=== PATIENT | male | born 1990 | race Caucasian/White ===

== ENCOUNTER 2016-12-01 16:51 | Observation (INO) | payer OTHER ==
[2016-12-01] MEDS ORDERED: Ondansetron INJ* 2 MG/ML VIAL IV ONE (17:02)
[2016-12-01] MEDS ORDERED: Morphine INJ* 4 MG/ML 1 ML SYRINGE IV ONE ×2 (17:02→19:01)
[2016-12-01] MEDS: NS 0.9% 1000 ML* 2,000 ML IV ONE (17:21)
--- NOTE | 2016-12-01 17:25 | RAD ---
INDICATION: Epigastric pain and shortness of breath. COMPARISON: There are no prior studies available for comparison. TECHNIQUE: A portable view of the chest was obtained. The left costophrenic angle is cut off on the film. FINDINGS: Cardiac and mediastinal contours appear to be within normal limits. The lungs are clear. No pleural effusion is seen. IMPRESSION: NO EVIDENCE FOR ACUTE DISEASE.
[2016-12-01 17:32] LABS: Hematocrit 42 % (42-52); Hemoglobin 14.4 g/dl (14.0-18.0); Mean Corpuscular HGB Conc 34 g/dl (31-36); Mean Corpuscular Hemoglobin 28 pg (27-31); Mean Corpuscular Volume 82 fL (80-94); Mean Platelet Volume 9 um3 (7.4-10.4); Red Blood Count 5.14 10^6/ul (4.0-5.4); Red Cell Distribution Width 14 % (10.5-15); White Blood Count 12.6 10^3/ul (3.5-10.8)
[2016-12-01 17:47] LABS: BUN/Creatinine Ratio 22.9 (8-20); C Reactive Protein 1.99 mg/L (< 5.00); Calcium 9.2 mg/dL (8.6-10.3); EGFR African American 145.2 (>60); EGFR Non-African American 112.9 (>60); Globulin 2.9 g/dL (2-4); Magnesium 1.7 mg/dL (1.9-2.7); Potassium 3.9 mmol/L (3.5-5.0); Total Bilirubin 0.5 mg/dL (0.2-1.0); Total Protein 6.9 g/dL (6.4-8.9)
[2016-12-01 17:55] LABS: Troponin I 0.06 ng/mL (<0.04)
[2016-12-01] MEDS ORDERED: Aspirin Low Dose CHEW TAB* 81 MG PO ONE (17:55)
[2016-12-01 18:09] LABS: TSH (Thyroid Stimulating Horm) 1.45 mcIU/mL (0.34-5.60)
[2016-12-01] MEDS ORDERED: Iohexol 300* (CONTRAST) 10 ML SDV IV ONE (18:19)
[2016-12-01] MEDS ORDERED: Magnesium Sulfate 2 GM IV* 2 GM/50 ML BAG IVPB ONE (18:40)
--- NOTE | 2016-12-01 19:01 | ED ---
Shyam Zarco Janilya, scribed for Umer Milian MD on 12/01/16 at 1706 . HPI Chest Pain - HPI Summary HPI Summary: A 26 y/o male came in to [facility] presenting w/ a sudden onset of constant mid- sternal CP starting a few hours ago. Severity rated 6/10 at this time. En route , it was rated at 9/10. Pt states he was sitting in a chair when suddenly he had pain in chest. It started as mild discomfort, but within a minute, it increased to severe pain. Pain is described as sharp and tight pain. He states he was not able to breathe because breathing worsened the CP. The pain radiates to abd and back rib cage, according to pt. - History of Current Complaint Time Seen by Provider: 12/01/16 16:56 Hx Obtained From: Patient Onset/Duration: Started Hours Ago, Atraumatic, Still Present Timing: Constant Initial Severity: Moderate Current Severity: Moderate Pain Intensity: 6 Pain Scale Used: 0-10 Numeric Chest Pain Location: Mid Sternal Chest Pain Radiates: Yes Chest Pain Radiates To:: Back, Other - abd Character: Sharp/Stabbing, Tightness Aggravating Factor(s): Nothing Alleviating Factor(s): Nothing Associated Signs and Symptoms: Positive: Chest Pain, Shortness of Breath, Back Pain, Abdominal Pain Related History: Obesity - Additional Pertinent History Primary Care Physician: [id number] - Allergy/Home Medications Allergies/Adverse Reactions: Allergies Allergy/AdvReac Type Severity Reaction Status Date / Time No Known Allergies Allergy Verified 02/11/16 14:23 PMH/Surg Hx/FS Hx/Imm Hx Previously Healthy: Yes Endocrine/Hematology History: Reports: Hx Diabetes - pre diabetic Denies: Hx Systemic Lupus Erythematosus Cardiovascular History: Reports: Hx Hypertension Denies: Hx Congestive Heart Failure, Hx Pacemaker/ICD Respiratory History: Reports: Hx Sleep Apnea - beginning History: Denies: Hx Dialysis, Hx Renal Disease Musculoskeletal History: Reports: Hx Arthritis, Other Musculoskeletal History - Morbid obesity Denies: Hx Rheumatoid Arthritis Sensory History: Denies: Hx Hearing Aid Psychiatric History: Reports: Hx Anxiety Denies: Hx Panic Disorder - Cancer History Hx Chemotherapy: No - Surgical History Hx Anesthesia Reactions: No - Family History Known Family History: Positive: Diabetes Negative: Cardiac Disease Family History: R & n/C - Social History Alcohol Use: None Hx Substance Use: No Substance Use Type: Reports: None Substance Use Comment - Amount & Last Used: vape cigarettes Hx Tobacco Use: No Smoking Status (MU): Former Smoker Review of Systems Positive: Chest Pain Positive: Shortness Of Breath Positive: Abdominal Pain Positive: Arthralgia - back rib cage pain, Myalgia - back pain All Other Systems Reviewed And Are Negative: Yes Physical Exam Triage Information Reviewed: Yes Vital Signs On Initial Exam: Vital Signs (72 hours) 12/01/16 12/01/16 16:54 17:00 Temperature 97.3 F 97.8 F Pulse Rate 73 67 Respiratory 12 16 Rate Blood Pressure 155/83 155/83 (mmHg) O2 Sat by Pulse 100 100 Oximetry Vital Signs Reviewed: Yes Appearance: Positive: Well-Appearing, Pain Distress - moderate Skin: Positive: Warm, Skin Color Reflects Adequate Perfusion, Dry, Other - Sweaty and pale Head/Face: Positive: Normal Head/Face Inspection Eyes: Positive: EOMI, MICHAEL ENT: Positive: Normal ENT inspection Neck: Positive: Supple, Nontender Respiratory/Lung Sounds: Positive: Clear to Auscultation, Breath Sounds Present Cardiovascular: Positive: RRR Abdomen Description: Positive: Soft, Other: - Tenderness in the epigastrium. Negative: Nontender Bowel Sounds: Positive: Present, Hypoactive Musculoskeletal: Positive: Normal, Strength/ROM Intact Neurological: Positive: Normal, Sensory/Motor Intact, Alert, Oriented to Person Place, Time. Negative: Focal Deficit @ Psychiatric: Positive: Affect/Mood Appropriate Diagnostics - Vital Signs Vital Signs Temp Pulse Resp BP Pulse Ox 12/01/16 18:30 75 18 143/69 98 12/01/16 18:00 85 17 126/87 96 12/01/16 17:48 78 16 142/95 96 12/01/16 17:34 67 14 97 12/01/16 17:20 18 12/01/16 17:00 97.8 F 67 16 155/83 100 12/01/16 16:54 97.3 F 73 12 155/83 100 - Laboratory Lab Results: Lab Results 12/01/16 12/01/16 12/01/16 Range/Units 17:20 17:20 17:20 WBC 12.6 H (3.5-10.8) 10^3/ul RBC 5.14 (4.0-5.4) 10^6/ul Hgb 14.4 (14.0-18.0) g/dl Hct 42 (42-52) % MCV 82 (80-94) fL MCH 28 (27-31) pg MCHC 34 (31-36) g/dl RDW 14 (10.5-15) % Plt Count 235 (150-450) 10^3/ul MPV 9 (7.4-10.4) um3 Neut % (Auto) 71.5 (38-83) % Lymph % (Auto) 18.6 L (25-47) % [place] % (Auto) 6.7 (1-9) % Eos % (Auto) 1.9 (0-6) % Baso % (Auto) 1.3 (0-2) % Absolute Neuts (auto) 9.0 H (1.5-7.7) 10^3/ul Absolute Lymphs (auto) 2.3 (1.0-4.8) 10^3/ul Absolute Monos (auto) 0.8 (0-0.8) 10^3/ul Absolute Eos (auto) 0.2 (0-0.6) 10^3/ul Absolute Basos (auto) 0.2 (0-0.2) 10^3/ul Absolute Nucleated RBC 0.01 10^3/ul Nucleated RBC % 0 INR (Anticoag Therapy) 0.89 (0.89-1.11) APTT 30.4 (26.0-36.3) seconds D-Dimer, Quantitative < 200 (Less Than 230) ng/mL Sodium 135 (133-145) mmol/L Potassium 3.9 (3.5-5.0) mmol/L Chloride 107 (101-111) mmol/L Carbon Dioxide 21 L (22-32) mmol/L Anion Gap 7 (2-11) mmol/L BUN 19 (6-24) mg/dL Creatinine 0.83 (0.67-1.17) mg/dL Est GFR ( Amer) 145.2 (>60) Est GFR (Non-Af Amer) 112.9 (>60) BUN/Creatinine Ratio 22.9 H (8-20) Glucose 115 H (70-100) mg/dL Lactic Acid (0.5-2.0) mmol/L Calcium 9.2 (8.6-10.3) mg/dL Magnesium 1.7 L (1.9-2.7) mg/dL Total Bilirubin 0.50 (0.2-1.0) mg/dL AST 40 H (13-39) U/L ALT 33 (7-52) U/L Alkaline Phosphatase 64 (34-104) U/L Total Creatine Kinase 102 (10-223) U/L CK-MB (CK-2) 1.9 (0.6-6.3) ng/mL Troponin I 0.06 H* (<0.04) ng/mL C-Reactive Protein 1.99 (< 5.00) mg/L Total Protein 6.9 (6.4-8.9) g/dL Albumin 4.0 (3.2-5.2) g/dL Globulin 2.9 (2-4) g/dL Albumin/Globulin Ratio 1.4 (1-3) Lipase 23 (11.0-82.0) U/L TSH 1.45 (0.34-5.60) mcIU/mL 12/01/16 Range/Units 17:20 WBC (3.5-10.8) 10^3/ul RBC (4.0-5.4) 10^6/ul Hgb (14.0-18.0) g/dl Hct (42-52) % MCV (80-94) fL MCH (27-31) pg MCHC (31-36) g/dl RDW (10.5-15) % Plt Count (150-450) 10^3/ul MPV (7.4-10.4) um3 Neut % (Auto) (38-83) % Lymph % (Auto) (25-47) % [place] % (Auto) (1-9) % Eos % (Auto) (0-6) % Baso % (Auto) (0-2) % Absolute Neuts (auto) (1.5-7.7) 10^3/ul Absolute Lymphs (auto) (1.0-4.8) 10^3/ul Absolute Monos (auto) (0-0.8) 10^3/ul Absolute Eos (auto) (0-0.6) 10^3/ul Absolute Basos (auto) (0-0.2) 10^3/ul Absolute Nucleated RBC 10^3/ul Nucleated RBC % INR (Anticoag Therapy) (0.89-1.11) APTT (26.0-36.3) seconds D-Dimer, Quantitative (Less Than 230) ng/mL Sodium (133-145) mmol/L Potassium (3.5-5.0) mmol/L Chloride (101-111) mmol/L Carbon Dioxide (22-32) mmol/L Anion Gap (2-11) mmol/L BUN (6-24) mg/dL Creatinine (0.67-1.17) mg/dL Est GFR ( Amer) (>60) Est GFR (Non-Af Amer) (>60) BUN/Creatinine Ratio (8-20) Glucose (70-100) mg/dL Lactic Acid 0.8 (0.5-2.0) mmol/L Calcium (8.6-10.3) mg/dL Magnesium (1.9-2.7) mg/dL Total Bilirubin (0.2-1.0) mg/dL AST (13-39) U/L ALT (7-52) U/L Alkaline Phosphatase (34-104) U/L Total Creatine Kinase (10-223) U/L CK-MB (CK-2) (0.6-6.3) ng/mL Troponin I (<0.04) ng/mL C-Reactive Protein (< 5.00) mg/L Total Protein (6.4-8.9) g/dL Albumin (3.2-5.2) g/dL Globulin (2-4) g/dL Albumin/Globulin Ratio (1-3) Lipase (11.0-82.0) U/L TSH (0.34-5.60) mcIU/mL Result Diagrams: 12/01/16 17:20 12/01/16 17:20 Lab Statement: Any lab studies that have been ordered have been reviewed, and results considered in the medical decision making process. - Radiology CXR Xray Interpretation: No Acute Changes - no evidence for acute disease Radiology Interpretation Completed By: Radiologist - EKG 9833 Cardiac Rate: NL - 66 bpm EKG Rhythm: Sinus Rhythm ST Segment: Normal Ectopy: None Chest Pain Course/Dx - Course Course Of Treatment: A 26 y/o male came in to [facility] presenting w/ a sudden onset of constant mid-sternal CP starting a few hours ago. Severity rated 6/10 at this time. En route, it was rated at 9/10. Pt states he was sitting in a chair when suddenly he had pain in chest. It started as mild discomfort, but within a minute, it increased to severe pain. Pain is described as sharp and tight pain. He states he was not able to breathe because breathing worsened the CP. The pain radiates to abd and back rib cage, according to pt. EKG is NSR w/ 66 bpm. CXR shows no evidence for acute disease. Assessment/Plan: NO CRITICAL CARE TIME. PATIENT REPORTS THIS IS THE SAME PAIN HE HAD WITH GALLSTONE PASSAGE. PAIN RELIEVED AFTER MORPHINE. EKG WITHOUT ST CHANGES. TROPONIN 0.06; REPEAT EKG UNCHANGED. AT SHIFT CHANGE REPEAT TROPONIN AND CT PENDING. STABLE AT SHIFT CHANGE. - Diagnoses Provider Diagnoses: Epigastric pain, Abdominal pain, Chest pain, Troponin level elevated Discharge - Discharge Plan Condition: Stable Disposition: OTHER Discharge Disposition Comment: V Referrals: Wisam Khan III, MINIATURE SET DESIGNER [Primary Care Provider] - The documentation as recorded by the Shyam gonzáles Janilya accurately reflects the service I personally performed and the decisions made by me, Umer Milian MD.
--- NOTE | 2016-12-01 20:35 | RAD ---
INDICATION: Shortness of breath, epigastric and chest pain. COMPARISON: Comparison is made with a prior CT of the abdomen and pelvis from February 11, 2016. TECHNIQUE: A CT angiogram of the chest and a CT of the abdomen and pelvis was performed with intravenous contrast following intravenous injection of 100 ml of Omnipaque 350 nonionic contrast. Contiguous axial sections were obtained from the lung apices through the symphysis pubis. Images were reconstructed in the coronal and sagittal planes. FINDINGS: CT ANGIOGRAM OF THE CHEST: There is relatively homogeneous opacification of the pulmonary arteries. No intraluminal filling defect or pulmonary embolism is seen. The exam is slightly limited due to underinflation of the lungs and the patient's body habitus. The heart is within normal limits in size. No pericardial effusion is present. The thoracic aorta is normal in caliber and demonstrates homogeneous contrast opacification without evidence for dissection. No significant enlarged mediastinal or hilar lymph nodes are seen. The lungs are clear. No pleural effusion is seen. CT OF THE ABDOMEN AND PELVIS: The liver is moderately enlarged and the spleen is mildly enlarged without change from the prior exam. No significant focal hepatic abnormality is seen. The patient is status post cholecystectomy. The pancreas appears to be within normal limits. The kidneys and adrenal glands are normal in size. No hydronephrosis is seen. No significant focal renal abnormality is seen. The abdominal aorta is normal in caliber. No significant enlarged retroperitoneal lymph nodes are seen. The stomach, small and large bowel appear nondistended. The appendix appears to be within normal limits. There are diverticuli scattered throughout the colon. There is no evidence for diverticulitis or colitis. There is a small periumbilical hernia containing fat. No free intraperitoneal air or fluid is seen. No significant focal osseous abnormality is seen. IMPRESSION: 1. SLIGHTLY LIMITED EXAM, NO EVIDENCE FOR PULMONARY EMBOLISM. 2. HEPATOSPLENOMEGALY, UNCHANGED. 3. STATUS POST CHOLECYSTECTOMY.
[2016-12-01] MEDS ORDERED: Ketorolac INJ* 15 MG/ML 1 ML VIAL IV PUSH PRN (23:56)
[2016-12-02] MEDS ORDERED: Ketorolac INJ* 15 MG/ML 1 ML VIAL ONE
[2016-12-02 02:40] LABS: Urine Bilirubin Negative (Negative); Urine Glucose Negative (Negative); Urine Nitrite Negative (Negative)
--- NOTE | 2016-12-02 09:38 | RAD ---
INDICATION: Abdominal pain. Cholecystectomy. COMPARISON: CT chest/abdomen/pelvis previous day TECHNIQUE: Longitudinal and transverse scans of the abdomen were obtained. Doppler interrogation of the hepatic and portal venous system was performed. FINDINGS: Liver: The liver is at the upper limits of normal in size. There is mild increased echogenicity suggestive of hepatic steatosis. There are no focal masses. The liver measures 17.1 cm in cephalocaudal dimension. Vessels: There is normal hepatic and portal venous flow. Bile ducts: There is no evidence of intrahepatic or extrahepatic ductal dilatation. The common duct measures 0.6 cm. Gallbladder: Cholecystectomy. Pancreas: The pancreas is not well evaluated due to interfering bowel gas Spleen:The spleen is normal in size and echogenicity. The spleen measures 14.2 x 5.9 x 7.0 cm. Kidneys: The kidneys are normal in size and echogenicity. There are no masses or calculi. There is no evidence of hydronephrosis. The right kidney measures 13.3 x 4.5 x 5.9 cm and the left kidney measures 13.4 x 7.0 x 4.6 cm. IVC and aorta: Evaluation is limited due to bowel gas. Fluid: There is no ascites. Other: None. IMPRESSION: 1. Top normal liver size with hepatic steatosis. 2. Moderate splenomegaly. 3. Cholecystectomy.
--- NOTE | 2016-12-02 09:57 | HP ---
HISTORY AND PHYSICAL: DATE OF ADMISSION: 12/01/16 CHIEF COMPLAINT: Chest/abdominal pain. HISTORY OF PRESENT ILLNESS: The patient is a 26-year-old gentleman who presents to the [facility] with a chief complaint of chest and abdominal pain. He says this started at about 5 p.m. last night. He started having significant pain in the epigastric area and it felt like he was on fire. It started going to his back and feeling much worse. It came on suddenly. He felt exactly the same way as when his gallbladder attack was last year. It is worse when he takes a deep breath. He does have associated nausea but no vomiting. He had no recent upper respiratory infection. He says he has had trouble with breathing, but it is because of the pain. In the ER, patient was evaluated and was concerned because he had a troponin of 0.06 and 0.05. PAST MEDICAL HISTORY: Significant for psoriasis, umbilical hernia, and cholecystectomy last year and morbid obesity. ALLERGIES: He has no known drug allergies. MEDICATIONS: He currently takes no medications. FAMILY HISTORY: Mother is alive at 47 has endometriosis, uterine cancer, and hysterectomy. Father is alive at 49, has cardiomyopathy and had an enlarged heart. SOCIAL HISTORY: He quit tobacco 3 years ago, occasional alcohol and occasional drug use. 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 He is not . He has no children. REVIEW OF SYSTEMS: A 14-point review of systems was completed with the patient. All pertinent positives and negatives are in the history of present illness, otherwise is negative. PHYSICAL EXAMINATION GENERAL: A pleasant gentleman, overweight lying in bed, in no acute distress. VITAL SIGNS: Blood pressure is 155/83, pulse ox 100%, respiratory rate of 18 breaths per minute, heart rate 67 beats per minute, temperature of 97.8 degrees. HEENT: Normocephalic, atraumatic. Pupils equal, round, and reactive to light. Moist mucous membranes. NECK: Supple. No JVD, bruits, palpable thyroid or lymphadenopathy. CHEST: Clear to auscultation and percussion bilaterally. CARDIOVASCULAR: S1, S2 appreciated. Regular rate and rhythm. ABDOMEN: Morbidly obese. Positive bowel sounds in all 4 quadrants. Soft, nontender, nondistended. EXTREMITIES: No cyanosis, clubbing, or edema. 2+ peripheral pulses bilaterally. NEUROLOGIC: Alert and oriented x 3. Moves all extremities. SKIN: No rashes or abnormalities. LABORATORY DATA: White count 4.6, hemoglobin 14.4, hematocrit 42, platelets 235. Sodium 135, potassium is 3.9, chloride 107, CO2 21, BUN 19, creatinine 0.83 , glucose is 115, magnesium is 1.7. AST is 40, ALT is 33. Troponin 0.06, second troponin is 0.05. D-dimer less than 200. Urinalysis is positive for urobilinogen. Chest x-ray was interpreted by radiology as no evidence for acute disease. EKG shows normal sinus rhythm at 67 beats per minute, normal axis, no acute ST- T wave changes. CTA of the chest, abdomen and pelvis shows slightly limited exam, no evidence of pulmonary embolism, hepatomegaly or change, status post cholecystectomy. ASSESSMENT AND PLAN: 1. Chest/abdominal pain. Patient states it is exactly like his gallbladder attack last year, but he has his gallbladder out. It is a very unlikely possibly, but he could have sludge left there. We will get an ultrasound of his gallbladder, but I think it would be unrevealing. His LFTs are within normal limits. I think his troponins are unlikely of significance, but he is very concerned. We will get another troponin in the morning, and then get an echocardiogram. I think most likely pericarditis. I have given him 50 mg of Toradol to see if this helps as well. 2. FEN: Heart healthy diet. 3. DVT prophylaxis: None. He is young and ambulatory. 4. The patient is a full code. TIME SPENT: Over 80 minutes was spent on this H and P, more than 45 minutes was spent in direct face to face contact with the patient, evaluation, physical examination, counseling, and coordination of care. CC: Dr. Wisam Khan, primary care provider* [id number]/[facility] #: [id number] AMANDA
[2016-12-02] MEDS ORDERED: Perflutren Lipid Microsphere* 3 ML VIAL ONE (12:41)
--- NOTE | 2016-12-02 13:56 | ECHO ---
Patient: MEG PEREIRA [facility] Rec#: [id number] : 1990 Date: 12/02/2016 Age: 26y Height: 180.3 cm / 71.0 in Weight: 145.2 kg / 320.0 lbs Sex: M BSA: 2.6 Room#: 433 Admit Date#: 12/01/2016 Type: Inpatient Referring: Joseph Bennett MD Reading: Dane Florentino MD Blasting Machine Operator: Diane Jackson RN RDCS CC: Wisam Khan, DO Transthoracic Echocardiogram Indication: Chest pain BP: 132/57 HR: 55 Rhythm: Bradycardia Findings History: HTN, pre-diabetes, sleep apnea, anxiety, morbid obesity Technical Comments: The study is technically limited due to patient body habitus. Completed at 1330. Left Ventricle: The left ventricular chamber size is normal. Mild to moderate concentric left ventricular hypertrophy is observed. Left ventricular systolic function is at the lower limits of normal. The estimated ejection fraction is 50-55%. Normal left ventricular diastolic filling is observed. Left Atrium: The left atrium is mildly dilated. Right Ventricle: The right ventricular cavity size is normal. The right ventricular global systolic function is low normal. Right Atrium: The right atrium is mildly dilated. Aortic Valve: The aortic valve is trileaflet. The aortic valve leaflets are mildly thickened. There is no evidence of aortic regurgitation. There is no evidence of aortic stenosis. Mitral Valve: The mitral valve leaflets are mildly thickened. There is a trace of mitral regurgitation. There is no evidence of mitral stenosis. Tricuspid Valve: The tricuspid valve leaflets are normal. There is trace to mild tricuspid regurgitation. Unable to estimate the right ventricular systolic pressure. Pulmonic Valve: The pulmonic valve appears normal. There is no evidence of pulmonic regurgitation. There is no pulmonic stenosis. Pericardium: There is no significant pericardial effusion. A pericardial fat pad is visualized. Aorta: There is no dilatation of the ascending aorta. There is no dilatation of the aortic arch. There is no dilation of the aortic root. Pulmonary Artery: The main pulmonary artery appears normal. Venous: The inferior vena cava appears normal in size. There is less than 50% respiratory change in the inferior vena cava dimension. Contrast: Definity was used to optimize study. 2 ml of diluted Definity was administered IV to improve endocardial border definition. Conclusions Mild to moderate concentric left ventricular hypertrophy is observed. Left ventricular systolic function is at the lower limits of normal. The estimated ejection fraction is 50-55%. Normal left ventricular diastolic filling is observed. The right ventricular global systolic function is low normal. The aortic valve leaflets are mildly thickened. There is no evidence of aortic regurgitation. There is a trace of mitral regurgitation. There is trace to mild tricuspid regurgitation. Unable to estimate the right ventricular systolic pressure. There is no significant pericardial effusion. Measurements Name Value Normal Range RVDdMajor (2D) 4 cm (2.2 - 4.4) RAd ISD 4CH 5 cm (3.4 - 4.9) RA (A4C)W 4.6 cm (2.9 - 4.6) IVSd (2D) 1.3 cm (0.6 - 1) LVPWd (2D) 1.1 cm (0.6 - 1) LVIDd (2D) 4.8 cm (3.6 - 5.4) LVIDs (2D) 3.5 cm - LV FS (2D) 27 % (25 - 45) Aortic Annulus 2.1 cm (1.4 - 2.6) Ao root diameter (2D) 2.9 cm (2.1 - 3.5) Ascending Ao 2.7 cm (2.1 - 3.4) Aortic arch 2.5 cm (1.8 - 3.4) LA dimension (AP) 2D 3.6 cm (2.3 - 3.8) LAd ISD 4CH 5.7 cm (2.9 - 5.3) LA ISD 4CH W 4.1 cm (2.5 - 4.5) Name Value Normal Range LA ESV SP 4CH (A/L) 45 ml - LA ESV SP 2CH (A/L) 59 ml - LA ESV BP (A/L) 53 ml - LA ESV BP (A/L) index 20.4 ml/m2 - LA ESV SP 4CH (MOD) 43 ml - LA ESV SP 2CH (MOD) 58 ml - Name Value Normal Range MV E-wave Vmax 1.2 m/sec - MV deceleration time 190 msec - MV A-wave Vmax 0.73 m/sec - MV E:A ratio 1.7 ratio - LV septal e' Vmax 0.13 m/sec - LV lateral e' Vmax 0.13 m/sec - LV E:e' septal ratio 9.2 ratio - LV E:e' lateral ratio 9.2 ratio - Name Value Normal Range AV Vmax 1.4 m/sec - AV VTI 33 cm - AV peak gradient 8 mmHg - AV mean gradient 4 mmHg - LVOT Vmax 1.1 m/sec - LVOT VTI 26 cm - LVOT peak gradient 5 mmHg - LVOT mean gradient 3 mmHg - KATELIN Vmax 1.2 m/sec - Name Value Normal Range IVC diameter 2.1 cm - Name Value Normal Range PV Vmax 0.75 m/sec -
--- NOTE | 2016-12-02 14:01 | PN ---
"Subjective Date of Service: 12/02/16 Objective Active Medications: Ketorolac Tromethamine (Toradol Inj*) 15 mg IV PUSH Q6H PRN PRN Reason: PAIN Last Admin: 12/02/16 00:05 Dose: 15 mg Vital Signs 12/02/16 12/02/16 12/02/16 01:15 03:37 08:55 Temperature 97.7 F 96.8 F 97.8 F Pulse Rate 67 65 53 Respiratory 18 20 16 Rate Blood Pressure 135/78 132/57 141/75 (mmHg) O2 Sat by Pulse 99 98 98 Oximetry Result Diagrams: 12/01/16 17:20 12/01/16 17:20 Additional Lab and Data: Lab Results 12/01/16 12/01/16 12/01/16 Range/Units 17:20 17:20 17:20 WBC 12.6 H (3.5-10.8) 10^3/ul RBC 5.14 (4.0-5.4) 10^6/ul Hgb 14.4 (14.0-18.0) g/dl Hct 42 (42-52) % MCV 82 (80-94) fL MCH 28 (27-31) pg MCHC 34 (31-36) g/dl RDW 14 (10.5-15) % Plt Count 235 (150-450) 10^3/ul MPV 9 (7.4-10.4) um3 Neut % (Auto) 71.5 (38-83) % Lymph % (Auto) 18.6 L (25-47) % Lee % (Auto) 6.7 (1-9) % Eos % (Auto) 1.9 (0-6) % Baso % (Auto) 1.3 (0-2) % Absolute Neuts (auto) 9.0 H (1.5-7.7) 10^3/ul Absolute Lymphs (auto) 2.3 (1.0-4.8) 10^3/ul Absolute Monos (auto) 0.8 (0-0.8) 10^3/ul Absolute Eos (auto) 0.2 (0-0.6) 10^3/ul Absolute Basos (auto) 0.2 (0-0.2) 10^3/ul Absolute Nucleated RBC 0.01 10^3/ul Nucleated RBC % 0 INR (Anticoag Therapy) 0.89 (0.89-1.11) APTT 30.4 (26.0-36.3) seconds D-Dimer, Quantitative < 200 (Less Than 230) ng/mL Sodium 135 (133-145) mmol/L Potassium 3.9 (3.5-5.0) mmol/L Chloride 107 (101-111) mmol/L Carbon Dioxide 21 L (22-32) mmol/L Anion Gap 7 (2-11) mmol/L BUN 19 (6-24) mg/dL Creatinine 0.83 (0.67-1.17) mg/dL Est GFR ( Amer) 145.2 (>60) Est GFR (Non-Af Amer) 112.9 (>60) BUN/Creatinine Ratio 22.9 H (8-20) Glucose 115 H (70-100) mg/dL Lactic Acid (0.5-2.0) mmol/L Calcium 9.2 (8.6-10.3) mg/dL Magnesium 1.7 L (1.9-2.7) mg/dL Total Bilirubin 0.50 (0.2-1.0) mg/dL AST 40 H (13-39) U/L ALT 33 (7-52) U/L Alkaline Phosphatase 64 (34-104) U/L Total Creatine Kinase 102 (10-223) U/L CK-MB (CK-2) 1.9 (0.6-6.3) ng/mL Troponin I 0.06 H* (<0.04) ng/mL C-Reactive Protein 1.99 (< 5.00) mg/L Total Protein 6.9 (6.4-8.9) g/dL Albumin 4.0 (3.2-5.2) g/dL Globulin 2.9 (2-4) g/dL Albumin/Globulin Ratio 1.4 (1-3) Lipase 23 (11.0-82.0) U/L TSH 1.45 (0.34-5.60) mcIU/mL // Range/Units 17:20 WBC (3.5-10.8) 10^3/ul RBC (4.0-5.4) 10^6/ul Hgb (14.0-18.0) g/dl Hct (42-52) % MCV (80-94) fL MCH (27-31) pg MCHC (31-36) g/dl RDW (10.5-15) % Plt Count (150-450) 10^3/ul MPV (7.4-10.4) um3 Neut % (Auto) (38-83) % Lymph % (Auto) (25-47) % Lee % (Auto) (1-9) % Eos % (Auto) (0-6) % Baso % (Auto) (0-2) % Absolute Neuts (auto) (1.5-7.7) 10^3/ul Absolute Lymphs (auto) (1.0-4.8) 10^3/ul Absolute Monos (auto) (0-0.8) 10^3/ul Absolute Eos (auto) (0-0.6) 10^3/ul Absolute Basos (auto) (0-0.2) 10^3/ul Absolute Nucleated RBC 10^3/ul Nucleated RBC % INR (Anticoag Therapy) (0.89-1.11) APTT (26.0-36.3) seconds D-Dimer, Quantitative (Less Than 230) ng/mL Sodium (133-145) mmol/L Potassium (3.5-5.0) mmol/L Chloride (101-111) mmol/L Carbon Dioxide (22-32) mmol/L Anion Gap (2-11) mmol/L BUN (6-24) mg/dL Creatinine (0.67-1.17) mg/dL Est GFR ( Amer) (>60) Est GFR (Non-Af Amer) (>60) BUN/Creatinine Ratio (8-20) Glucose (70-100) mg/dL Lactic Acid 0.8 (0.5-2.0) mmol/L Calcium (8.6-10.3) mg/dL Magnesium (1.9-2.7) mg/dL Total Bilirubin (0.2-1.0) mg/dL AST (13-39) U/L ALT (7-52) U/L Alkaline Phosphatase (34-104) U/L Total Creatine Kinase (10-223) U/L CK-MB (CK-2) (0.6-6.3) ng/mL Troponin I (<0.04) ng/mL C-Reactive Protein (< 5.00) mg/L Total Protein (6.4-8.9) g/dL Albumin (3.2-5.2) g/dL Globulin (2-4) g/dL Albumin/Globulin Ratio (1-3) Lipase (11.0-82.0) U/L TSH (0.34-5.60) mcIU/mL Assess/Plan/Problems-Billing Assessment: - Patient Problems (1) Abdominal pain Status: Acute Code(s): R10.9 - UNSPECIFIED ABDOMINAL PAIN SNOMED Code(s): 87146535 Comment: [facility] neg. Suspect acid peptic disease. Rx omeprazole 20 mg bid PRN ondansetron and prn oxycodone, [facility] with his provider in [facility]. (2) Morbid obesity Status: Acute Code(s): E66.01 - MORBID (SEVERE) OBESITY DUE TO EXCESS CALORIES SNOMED Code(s): 726882561 Comment: BMI 47.4. Status and Disposition: Search Terms: aide barclay, 1990 Search Date: 12/02/2016 04:45:43 PM This report was requested by: Johnny Louis | Reference #: [id number] Others' Prescriptions Patient Name: Aide Barclay Date: 1990 Address: [address] [place] [address] Sex: Male Rx Written Rx Dispensed Drug Quantity Days Supply Prescriber Name 02/15/2016 02/15/2016 hydrocodone-acetaminophen 5-325 tablet 30 3 Brandi Martinez Discharge now. [facility]."
[2016-12-02] MEDS ORDERED: LORazepam INJ* 2 MG/ML 1 ML VIAL IV PUSH ONE ×2 (15:00→18:00)
[2016-12-02 15:18] VITALS: BP 154/97
--- NOTE | 2016-12-02 16:06 | RAD ---
Indication: Abdominal pain, right upper quadrant pain Image sequences: Axial T2, coronal T2, 3-D MRCP images of the biliary system was obtained. The left and right hepatic ducts are normal. Common hepatic duct and common bile duct or intact without evidence of abnormal dilatation. No filling defects are noted. The patient is status post cholecystectomy. IMPRESSION: No filling defects are noted in the common hepatic or common bile duct with no intrahepatic ductal dilatation present.
--- NOTE | 2016-12-02 17:41 | DCNOTE ---
"Subjective Date of Service: 12/02/16 Interval History: Patient c/o intermittent nausea, epigastric pain. No emesis or diarrhea. Some pain in back also. Objective Active Medications: Ketorolac Tromethamine (Toradol Inj*) 15 mg IV PUSH Q6H PRN PRN Reason: PAIN Last Admin: 12/02/16 00:05 Dose: 15 mg Vital Signs 12/02/16 12/02/16 12/02/16 01:15 03:37 08:55 Temperature 97.7 F 96.8 F 97.8 F Pulse Rate 67 65 53 Respiratory 18 20 16 Rate Blood Pressure 135/78 132/57 141/75 (mmHg) O2 Sat by Pulse 99 98 98 Oximetry 12/02/16 12/02/16 12/02/16 11:19 15:08 15:12 Temperature 98.4 F 98.3 F Pulse Rate 47 79 Respiratory 16 18 18 Rate Blood Pressure 126/82 154/97 (mmHg) O2 Sat by Pulse 97 97 Oximetry 12/02/16 16:08 Temperature Pulse Rate Respiratory 17 Rate Blood Pressure (mmHg) O2 Sat by Pulse Oximetry Oxygen Devices in Use Now: None Appearance: Alert, partly up in bed. Anxious. Eyes: No Scleral Icterus Respiratory: Symmetrical Chest Expansion and Respiratory Effort, Clear to Auscultation, Clear to Percussion Cardiovascular: NL Sounds; No Murmurs; No JVD, RRR, No Edema, - Abdominal: No Hepatosplenomegaly, - - mild to mod diffuse abd tenderness, more in epigastrium. Extremities: No Edema, No Clubbing, Cyanosis, - Skin: No Rash or Ulcers, No Nodules or Sclerosis, - Neurological: Alert and Oriented x 3, NL Sensation Result Diagrams: 12/01/16 17:20 12/01/16 17:20 Additional Lab and Data: Lab Results 12/01/16 12/01/16 12/01/16 Range/Units 17:20 17:20 17:20 WBC 12.6 H (3.5-10.8) 10^3/ul RBC 5.14 (4.0-5.4) 10^6/ul Hgb 14.4 (14.0-18.0) g/dl Hct 42 (42-52) % MCV 82 (80-94) fL MCH 28 (27-31) pg MCHC 34 (31-36) g/dl RDW 14 (10.5-15) % Plt Count 235 (150-450) 10^3/ul MPV 9 (7.4-10.4) um3 Neut % (Auto) 71.5 (38-83) % Lymph % (Auto) 18.6 L (25-47) % [place] % (Auto) 6.7 (1-9) % Eos % (Auto) 1.9 (0-6) % Baso % (Auto) 1.3 (0-2) % Absolute Neuts (auto) 9.0 H (1.5-7.7) 10^3/ul Absolute Lymphs (auto) 2.3 (1.0-4.8) 10^3/ul Absolute Monos (auto) 0.8 (0-0.8) 10^3/ul Absolute Eos (auto) 0.2 (0-0.6) 10^3/ul Absolute Basos (auto) 0.2 (0-0.2) 10^3/ul Absolute Nucleated RBC 0.01 10^3/ul Nucleated RBC % 0 INR (Anticoag Therapy) 0.89 (0.89-1.11) APTT 30.4 (26.0-36.3) seconds D-Dimer, Quantitative < 200 (Less Than 230) ng/mL Sodium 135 (133-145) mmol/L Potassium 3.9 (3.5-5.0) mmol/L Chloride 107 (101-111) mmol/L Carbon Dioxide 21 L (22-32) mmol/L Anion Gap 7 (2-11) mmol/L BUN 19 (6-24) mg/dL Creatinine 0.83 (0.67-1.17) mg/dL Est GFR ( Amer) 145.2 (>60) Est GFR (Non-Af Amer) 112.9 (>60) BUN/Creatinine Ratio 22.9 H (8-20) Glucose 115 H (70-100) mg/dL Lactic Acid (0.5-2.0) mmol/L Calcium 9.2 (8.6-10.3) mg/dL Magnesium 1.7 L (1.9-2.7) mg/dL Total Bilirubin 0.50 (0.2-1.0) mg/dL AST 40 H (13-39) U/L ALT 33 (7-52) U/L Alkaline Phosphatase 64 (34-104) U/L Total Creatine Kinase 102 (10-223) U/L CK-MB (CK-2) 1.9 (0.6-6.3) ng/mL Troponin I 0.06 H* (<0.04) ng/mL C-Reactive Protein 1.99 (< 5.00) mg/L Total Protein 6.9 (6.4-8.9) g/dL Albumin 4.0 (3.2-5.2) g/dL Globulin 2.9 (2-4) g/dL Albumin/Globulin Ratio 1.4 (1-3) Lipase 23 (11.0-82.0) U/L TSH 1.45 (0.34-5.60) mcIU/mL 12/01/16 Range/Units 17:20 WBC (3.5-10.8) 10^3/ul RBC (4.0-5.4) 10^6/ul Hgb (14.0-18.0) g/dl Hct (42-52) % MCV (80-94) fL MCH (27-31) pg MCHC (31-36) g/dl RDW (10.5-15) % Plt Count (150-450) 10^3/ul MPV (7.4-10.4) um3 Neut % (Auto) (38-83) % Lymph % (Auto) (25-47) % [place] % (Auto) (1-9) % Eos % (Auto) (0-6) % Baso % (Auto) (0-2) % Absolute Neuts (auto) (1.5-7.7) 10^3/ul Absolute Lymphs (auto) (1.0-4.8) 10^3/ul Absolute Monos (auto) (0-0.8) 10^3/ul Absolute Eos (auto) (0-0.6) 10^3/ul Absolute Basos (auto) (0-0.2) 10^3/ul Absolute Nucleated RBC 10^3/ul Nucleated RBC % INR (Anticoag Therapy) (0.89-1.11) APTT (26.0-36.3) seconds D-Dimer, Quantitative (Less Than 230) ng/mL Sodium (133-145) mmol/L Potassium (3.5-5.0) mmol/L Chloride (101-111) mmol/L Carbon Dioxide (22-32) mmol/L Anion Gap (2-11) mmol/L BUN (6-24) mg/dL Creatinine (0.67-1.17) mg/dL Est GFR ( Amer) (>60) Est GFR (Non-Af Amer) (>60) BUN/Creatinine Ratio (8-20) Glucose (70-100) mg/dL Lactic Acid 0.8 (0.5-2.0) mmol/L Calcium (8.6-10.3) mg/dL Magnesium (1.9-2.7) mg/dL Total Bilirubin (0.2-1.0) mg/dL AST (13-39) U/L ALT (7-52) U/L Alkaline Phosphatase (34-104) U/L Total Creatine Kinase (10-223) U/L CK-MB (CK-2) (0.6-6.3) ng/mL Troponin I (<0.04) ng/mL C-Reactive Protein (< 5.00) mg/L Total Protein (6.4-8.9) g/dL Albumin (3.2-5.2) g/dL Globulin (2-4) g/dL Albumin/Globulin Ratio (1-3) Lipase (11.0-82.0) U/L TSH (0.34-5.60) mcIU/mL Assess/Plan/Problems-Billing Assessment: - Patient Problems (1) Abdominal pain Current Visit: Yes Status: Acute Code(s): R10.9 - UNSPECIFIED ABDOMINAL PAIN SNOMED Code(s): 75615800 Comment: MRCP neg. Suspect acid peptic disease. Rx omeprazole 20 mg bid PRN ondansetron and prn oxycodone, fup with his provider in [facility]. (2) Morbid obesity Current Visit: Yes Status: Acute Code(s): E66.01 - MORBID (SEVERE) OBESITY DUE TO EXCESS CALORIES SNOMED Code(s): 454132037 Comment: BMI 47.4. Status and Disposition: Search Terms: aide ning, 1990 Search Date: 12/02/2016 04:45:43 PM This report was requested by: Johnny Louis | Reference #: [id number] Others' Prescriptions Patient Name: Aide Wang Date: 1990 Address: [address] [place] [address] Sex: Male Rx Written Rx Dispensed Drug Quantity Days Supply Prescriber Name 02/15/2016 02/15/2016 hydrocodone-acetaminophen 5-325 tablet 30 3 Brandi Martinez Discharge now. [facility]."
--- NOTE | 2016-12-03 07:03 | DS ---
CC: ROMA Uriarte at [facility] DISCHARGE SUMMARY: DATE OF ADMISSION: DATE OF DISCHARGE: 12/02/16 HOSPITAL COURSE: This 26-year-old man came with a complaint of epigastric pain. It began about 5 p. m. on 12/01/16. He said he felt like he was on fire. He developed some nausea. The patient had cholecystectomy in January 2016. He states this was the exact same kind of pain he had before his surgery. He states he was pretty doing really well until this episode. The rest of the history is in the admission note. The patient was admitted to a medical floor. He had MRCP the next day. There were no filling defec ts and no intraductal dilatation. My clinical impression is that the patient likely has some form of acid peptic disease whether esoph agitis, gastritis, or ulceration of the upper GI tract. He was started on omeprazole 20 mg b.i.d. He was given prescriptions for ondansetron and oxycodone as well. If after a few days or week or so of twice daily omeprazole, he is not any better, then endoscopy could be considered. FINAL DIAGNOSIS: Possible acid peptic disease. DISCHARGE MEDICATIONS: 1. Omeprazole 20 mg b.i.d. 2. Oxycodone 5 mg every 4 hours p.r.n., dispensed 10. 3. Ondansetron 4 mg 1 every 4 hours p.r.n. nausea. [id number]/[facility] #: [id number]
== END 2016-12-02 18:33 | disposition home or self-care (01) ==
LOC: ED 16:51 → MEDTELE 23:56
PROVIDERS: ADMIT Internal Medicine; ATTEND Internal Medicine
DX: R10.13 Epigastric pain (principal); R07.9 Chest pain, unspecified; Z87.891 Personal history of nicotine dependence; R06.00 Dyspnea, unspecified; R74.8 Abnormal levels of other serum enzymes; E66.01 Morbid (severe) obesity due to excess calories; Z68.42 Body mass index [BMI] 45.0-49.9, adult; R16.1 Splenomegaly, not elsewhere classified; I49.1 Atrial premature depolarization; I51.7 Cardiomegaly
CPT/HCPCS: 36415; 71010; 71275; 74177; 74181; 76376; 76700; 80053; 81003; 82550; 82553; 83605; 83690; 83735; 84443; 84484; 85025; 85379; 85610; 85730; 86140; 93005; 93306; 96361; 96365; 96366; 96375; 99283; A9270-GY; C8929; G0378; J1885; J2060; J2270; J2405; Q9967

== ENCOUNTER 2017-03-24 03:38 | Emergency (ER) | payer OTHER ==
[2017-03-24 03:58] VITALS: BP 105/68
--- NOTE | 2017-03-24 04:02 | ED ---
Jericho Zarco Rebecca, scribed for Alejandro Fritz MD on 03/24/17 at 0359 . Palpitations / Dysrhythmia - HPI Summary HPI Summary: Pt is a 26 y/o M BIBA who presents to ED c/o palpitations and feeling shaky. Sx began gradually last night (03/23) while sitting at home, beginning in his legs, described as feeling like "I wasnt flowing right." Palpitations began afterwards and are described as being fast. Prior episodes of palpitations intermittently. Was last seen by his PCP a few months ago. In the past 6 months has lost 160+ pounds by doing the ketogenic diet and reports he is not taking any supplements. - History of Current Complaint Chief Complaint: EDChestPainROMI Hx Obtained From: Patient Onset/Duration: Gradual Onset, Still Present Character: Fast Aggravating: Nothing Alleviating: Nothing Related History: Similar Episode/Dx as - Prior episodes of palpitations intermittently for multiple years - Allergy/Home Medications Allergies/Adverse Reactions: Allergies Allergy/AdvReac Type Severity Reaction Status Date / Time No Known Allergies Allergy Verified 02/11/16 14:23 PMH/Surg Hx/FS Hx/Imm Hx Endocrine/Hematology History: Reports: Hx Diabetes - pre diabetic Denies: Hx Systemic Lupus Erythematosus Cardiovascular History: Reports: Hx Hypertension Denies: Hx Congestive Heart Failure, Hx Pacemaker/ICD Respiratory History: Reports: Hx Sleep Apnea - beginning GI History: Reports: Hx Gall Bladder Disease - Gall bladder removal History: Denies: Hx Dialysis, Hx Renal Disease Musculoskeletal History: Reports: Hx Arthritis, Other Musculoskeletal History - Morbid obesity Denies: Hx Rheumatoid Arthritis Sensory History: Denies: Hx Contacts or Glasses, Hx Hearing Aid Opthamlomology History: Denies: Hx Contacts or Glasses Psychiatric History: Reports: Hx Anxiety Denies: Hx Panic Disorder - Cancer History Hx Chemotherapy: No - Surgical History Surgery Procedure, Year, and Place: gallbladder removed Hx Anesthesia Reactions: No Infectious Disease History: Denies: Traveled Outside the [place] in Last 30 Days - Family History Known Family History: Positive: Diabetes Negative: Cardiac Disease - Social History Alcohol Use: None Hx Substance Use: No Substance Use Type: Reports: None Substance Use Comment - Amount & Last Used: vape cigarettes Hx Tobacco Use: No Smoking Status (MU): Former Smoker Review of Systems Positive: Other - feeling shaky Positive: Palpitations All Other Systems Reviewed And Are Negative: Yes Physical Exam Triage Information Reviewed: Yes Vital Signs Reviewed: Yes Appearance: Positive: Well-Appearing, No Pain Distress Skin: Positive: Warm Head/Face: Positive: Normal Head/Face Inspection Eyes: Positive: MICHAEL ENT: Positive: Hearing grossly normal Neck: Positive: Supple Respiratory/Lung Sounds: Positive: Clear to Auscultation, Breath Sounds Present Cardiovascular: Positive: RRR Abdomen Description: Positive: Nontender, Soft Bowel Sounds: Positive: Present Musculoskeletal: Positive: Strength/ROM Intact Neurological: Positive: Alert, Oriented to Person Place, Time, Normal Gait Psychiatric: Positive: Affect/Mood Appropriate Diagnostics - Laboratory Result Diagrams: 03/24/17 03:45 03/24/17 03:45 Lab Statement: Any lab studies that have been ordered have been reviewed, and results considered in the medical decision making process. - EKG 0346 Cardiac Rate: NL - 91 bpm EKG Rhythm: Sinus Rhythm EKG Interpretation: No acute changes Re-Evaluation - Re-Evaluation First Eval Change: Improved Course/Dx - Course Assessment/Plan: Pt is a 26 y/o M BIBA who presents to ED c/o palpitations and feeling shaky. Sx began gradually last night (03/23) while sitting at home, beginning in his legs, described as feeling like "I wasnt flowing right." Palpitations began afterwards and are described as being fast. Prior episodes of palpitations intermittently. Was last seen by his PCP a few months ago. In the past 6 months has lost 160+ pounds by doing the ketogenic diet and reports he is not taking any supplements. EKG is sinus rhythm with no acute changes. Pt will be D/C to home with Dx of palpitations and a follow up with his PCP. He understands and agrees. - Diagnoses Provider Diagnoses: Palpitation Discharge - Discharge Plan Condition: Stable Disposition: HOME Patient Education Materials: Palpitations (ED) Referrals: Wisam Khan III [employer] [Primary Care Provider] - 3 Days The documentation as recorded by the Jericho gonzáles Rebecca accurately reflects the service I personally performed and the decisions made by me, Alejandro Fritz MD.
[2017-03-24 04:13] LABS: Hematocrit 43 % (42-52); Mean Corpuscular HGB Conc 35 g/dl (31-36); Mean Corpuscular Hemoglobin 29 pg (27-31); Mean Corpuscular Volume 84 fL (80-94); Mean Platelet Volume 9 um3 (7.4-10.4); Red Blood Count 5.16 10^6/ul (4.0-5.4); Red Cell Distribution Width 14 % (10.5-15); White Blood Count 14.3 10^3/ul (3.5-10.8)
[2017-03-24 04:21] LABS: Potassium 3.5 mmol/L (3.5-5.0)
[2017-03-24 04:22] LABS: Albumin 4.9 g/dL (3.2-5.2); BUN/Creatinine Ratio 20.9 (8-20); Calcium 9.9 mg/dL (8.6-10.3); EGFR African American 139.3 (>60); EGFR Non-African American 108.4 (>60); Globulin 2.7 g/dL (2-4); Total Bilirubin 0.5 mg/dL (0.2-1.0); Total Protein 7.6 g/dL (6.4-8.9)
[2017-03-24 04:41] LABS: Magnesium 1.7 mg/dL (1.9-2.7)
== END 2017-03-24 05:08 | disposition home or self-care (01) ==
LOC: ED 03:38
DX: R00.2 Palpitations (principal); Z87.891 Personal history of nicotine dependence
CPT/HCPCS: 36415; 80053; 83605; 83735; 85025; 93005; 99284

== ENCOUNTER 2019-03-31 22:37 | Observation (INO) | payer OTHER ==
[2019-03-31 23:06] LABS: ABS Basophils 0.1 10^3/ul (0-0.2); ABS Eosinophils 0.1 10^3/ul (0-0.6); ABS Lymphocytes 1.5 10^3/ul (1.0-4.8); ABS Monocytes 0.7 10^3/ul (0-0.8); ABS Nucleated RBC 0.1 10^3/ul; Eosinophil % 1.3 %; Hematocrit 42 % (42-52); Hemoglobin 14.9 g/dL (14.0-18.0); Lymphocyte % 15.5 %; Mean Corpuscular HGB Conc 35 g/dL (31-36); Mean Corpuscular Hemoglobin 29 pg (27-31); Mean Corpuscular Volume 83 fL (80-94); Mean Platelet Volume 8.9 fL (7.4-10.4); Nucleated Red Blood Cells % 0.7; Platelet Count 239 10^3/uL (150-450); Red Blood Count 5.06 10^6 /uL (4.18-5.48); Red Cell Distribution Width 14 % (10-15); White Blood Count 9.4 10^3/uL (3.5-10.8)
--- NOTE | 2019-03-31 23:13 | ED ---
HPI Chest Pain - HPI Summary HPI Summary: 28-year-old male with a history of psoriasis presents with left-sided chest/arm pain and generalized feeling unwell since earlier today. Patient states that today he noticed that he was feeling fatigued, not himself, and had L chest wall and left arm pain. Chest pain began one hour prior to arrival, was left- sided mostly in his arm nonexertional, associated with diaphoresis. He states his left arm felt "heavy". Patient also reported dyspnea. Patient denies cough fever or chills. Did report diarrhea. Patient denies tobacco use, but does vape. Denies a history of cardiac problems, PE or DVT, RI. Patient was admitted to the hospital he felt more dyspneic so he called 911. On arrival to ED, patient in no acute distress, no hypoxia or tachypnea. States he currently does not have CP. - History of Current Complaint Chief Complaint: EDChestPainROMI Time Seen by Provider: 03/31/19 22:40 Hx Obtained From: Patient Onset/Duration: Started Hours Ago Timing: Constant Initial Severity: Moderate Current Severity: Mild Pain Intensity: 0 Chest Pain Location: Left Lateral - and L arm heaviness Chest Pain Radiates To:: Arm Character: Dull/Aching Aggravating Factor(s): Nothing Alleviating Factor(s): Nothing Associated Signs and Symptoms: Positive: Shortness of Breath, Diaphoresis - Risk Factors AMI/ACS Risk Factors: Obesity - Additional Pertinent History Primary Care Physician: [id number] - Allergy/Home Medications Allergies/Adverse Reactions: Allergies Allergy/AdvReac Type Severity Reaction Status Date / Time No Known Allergies Allergy Verified 02/11/16 14:23 PMH/Surg Hx/FS Hx/Imm Hx Endocrine/Hematology History: Reports: Hx Diabetes - pre diabetic Denies: Hx Systemic Lupus Erythematosus Cardiovascular History: Reports: Hx Hypertension Denies: Hx Congestive Heart Failure, Hx Pacemaker/ICD Respiratory History: Reports: Hx Sleep Apnea - beginning GI History: Reports: Hx Gall Bladder Disease - Gall bladder removal History: Denies: Hx Dialysis, Hx Renal Disease Musculoskeletal History: Reports: Hx Arthritis, Other Musculoskeletal History - Morbid obesity Denies: Hx Rheumatoid Arthritis Sensory History: Denies: Hx Contacts or Glasses, Hx Hearing Aid Opthamlomology History: Denies: Hx Contacts or Glasses Psychiatric History: Reports: Hx Anxiety Denies: Hx Panic Disorder - Cancer History Hx Chemotherapy: No - Surgical History Surgery Procedure, Year, and Place: gallbladder removed Hx Anesthesia Reactions: No Infectious Disease History: No Infectious Disease History: Denies: Traveled Outside the [place] in Last 30 Days - Family History Known Family History: Positive: None, Diabetes Negative: Cardiac Disease Family History: R & n/C - Social History Alcohol Use: None Hx Substance Use: No Substance Use Type: Reports: None Substance Use Comment - Amount & Last Used: vape cigarettes Hx Tobacco Use: No Smoking Status (MU): Former Smoker Review of Systems Positive: Fatigue, Skin Diaphoresis Positive: Chest Pain Positive: Shortness Of Breath Positive: Diarrhea All Other Systems Reviewed And Are Negative: Yes Physical Exam - Summary Physical Exam Summary: Constitutional: Well-developed, Well-nourished, Alert. (-) Distressed, obese Skin: Plaques to extensor surfaces of arms and legs HENT: Normocephalic; Atraumatic Eyes: Conjunctiva normal Neck: Musculoskeletal ROM normal neck. (-) JVD, (-) Stridor Cardio: Rhythm regular, rate normal, Heart sounds normal; Intact distal pulses; Radial pulses are 2+ and symmetric. (-) Murmur Pulmonary/Chest wall: Effort normal. (-) Respiratory distress, (-) Wheezes, (-) Rales Abd: Soft, (-) tenderness, (-) Distension, (-) Guarding, (-) Rebound Musculoskeletal: (-) Edema Lymph: (-) Cervical adenopathy Neuro: Alert, Oriented x3 Psych: Mood and affect Normal Vital Signs On Initial Exam: Initial Vitals Temp Pulse Resp BP Pulse Ox 36.9 C 76 16 116/86 98 03/31/19 22:44 03/31/19 22:44 03/31/19 22:44 03/31/19 22:44 03/31/19 22:44 Procedures - Procedure Summary Procedure Summary: US IV Ultrasound Guided Peripheral IV Procedure Note Indication: Unable to obtain adequate IV access Skin Prep:Chlorhexidine Sterile Prep (allowed to dry for thirty seconds) Sterility: Gloves Insertion: Appropriate time out was taken. Ultrasound guidance was utilized for vein selection, to document selected vessel patency and real time ultrasound visualization of vascular needle entry into venous lumen. Insertion Site: Left forearm Type of catheter: 18 gauge catheter Blood return:yes Saline lock: yes Post Procedure: Estimated blood loss: minimal Diagnostics - Vital Signs Vital Signs Temp Pulse Resp BP Pulse Ox 03/31/19 22:44 36.9 C 76 16 116/86 98 - Laboratory Lab Results: Lab Results 03/31/19 Range/Units 22:58 WBC 9.4 (3.5-10.8) 10^3/uL RBC 5.06 (4.18-5.48) 10^6 /uL Hgb 14.9 (14.0-18.0) g/dL Hct 42 (42-52) % MCV 83 (80-94) fL MCH 29 (27-31) pg MCHC 35 (31-36) g/dL RDW 14 (10-15) % Plt Count 239 (150-450) 10^3/uL MPV 8.9 (7.4-10.4) fL Neut % (Auto) 75.1 % Lymph % (Auto) 15.5 % [place] % (Auto) 7.6 % Eos % (Auto) 1.3 % Baso % (Auto) 0.5 % Absolute Neuts (auto) 7.0 (1.5-7.7) 10^3/ul Absolute Lymphs (auto) 1.5 (1.0-4.8) 10^3/ul Absolute Monos (auto) 0.7 (0-0.8) 10^3/ul Absolute Eos (auto) 0.1 (0-0.6) 10^3/ul Absolute Basos (auto) 0.1 (0-0.2) 10^3/ul Absolute Nucleated RBC 0.1 10^3/ul Nucleated RBC % 0.7 Result Diagrams: 03/31/19 22:58 03/31/19 22:57 Lab Statement: Any lab studies that have been ordered have been reviewed, and results considered in the medical decision making process. - EKG No standard instances EKG Rhythm: Sinus Rhythm ST Segment: Normal Ectopy: None Summary of EKG Findings: 22:35 Sinus rate 77, normal UT and QTc no ischemic changes. Re-Evaluation - Re-Evaluation First Eval Re-Evaluation Time: 11:50 Comment: Troponin elevated 0.05, d-dimer elevated 248, check a CT PE. Patient denies chest pain at this time Second Eval Re-Evaluation Time: 01:20 Change: Improved - Patient agrees to be admitted for stress test, neg CTA Chest Pain Course/Dx - Course Course Of Treatment: 28-year-old obese male with a history of vaping presents with generalized fatigue, chest pain, arm pain. - PE w obese male, no acute distress. Given vaping at increased risk for lung injury, check a chest x-ray and labs. Will also check a d-dimer given dyspnea, Well's low risk. Regarding chest pain, check a troponin and EKG. Of note, patient did have admission 2 years ago with elevated troponins however did not have a stress test at that time. Unclear cause for elevated troponins. - Diagnoses Provider Diagnoses: Chest pain, Dyspnea, Elevated troponin - Provider Notifications Discussed Care Of Patient With: Paula Davalos - will admit for observation and stress test Instructed by Provider To: Admit As Observation Discharge ED - Sign-Out/Discharge Documenting (check all that apply): Patient Departure Patient Received Moderate/Deep Sedation with Procedure: No - Discharge Plan Condition: Stable Disposition: ADMITTED TO [facility] Referrals: Jovita Ellison NP [Primary Care Provider] - - Billing Disposition and Condition Condition: STABLE Disposition: Admitted to [facility]
[2019-03-31 23:21] LABS: ALT 66 U/L (7-52); AST 25 U/L (13-39); Albumin 4.5 g/dL (3.2-5.2); Albumin/Globulin Ratio 1.8 (1-3); Alkaline Phosphatase 69 U/L (34-104); Anion Gap 10 mmol/L (2-11); Blood Urea Nitrogen 10 mg/dL (6-24); CO2 Carbon Dioxide 23 mmol/L (22-32); Calcium 9.4 mg/dL (8.6-10.3); Chloride 105 mmol/L (101-111); EGFR African American 134.5 (>60); EGFR Non-African American 111.1 (>60); Globulin 2.5 g/dL (2-4); Glucose 135 mg/dL (70-100); Potassium 3.5 mmol/L (3.5-5.0); Sodium 138 mmol/L (135-145)
[2019-03-31] MEDS ORDERED: NS 0.9% 1000 ML** 1,000 ML IV ONE (23:23)
[2019-03-31 23:27] LABS: Troponin I 0.05 ng/mL (<0.04)
[2019-03-31] MEDS ORDERED: Aspirin 81 mg CHEW TAB* 81 MG TAB.CHEW PO ONE (23:33)
[2019-04-01] MEDS ORDERED: Lorazepam PYXIS KEY PRN
[2019-04-01] MEDS ORDERED: LORazepam INJ* 2 MG/ML 1 ML VIAL IV PUSH ONE
[2019-04-01] MEDS ORDERED: Iohexol 350* (CONTRAST) 500 ML MDV IV ONE (00:09)
[2019-04-01] MEDS ORDERED: Lorazepam PYXIS KEY ONE (00:18)
[2019-04-01] MEDS ORDERED: Al Hydrox/Mg Hydrox/Simet LIQ* 30 ML UDC PO PRN (02:38)
[2019-04-01] MEDS ORDERED: Acetaminophen TAB* 325 MG PO PRN (02:38)
[2019-04-01 03:11] LABS: Troponin I 0.04 ng/mL (<0.04)
--- NOTE | 2019-04-01 07:41 | PN ---
Subjective Date of Service: 04/01/19 Interval History: 28 y/o M with BMI 52.5 and h/o HTN, BORIS(on cpap) and psoriasis presented with left arm pain and diaphoresis for 1 day. Echo on 2016 shows EF of 50-55% with mild Lv hypertrophy and LA dilatation. NO any complain at present. VS stable. Objective Active Medications: Acetaminophen (Tylenol Tab*) 975 mg PO Q8H PRN PRN Reason: Pain - Mild to Mod Last Admin: 04/01/19 04:18 Dose: 975 mg Al Hydrox/Mg Hydrox/Simethicone (Maalox Plus*) 30 ml PO Q6H PRN PRN Reason: INDIGESTION Miscellaneous (Ativan Pyxis Barraza) 1 ea N/A .ATIVAN IV BARRAZA PRN PRN Reason: PYXIS BARRAZA Vital Signs - 8 hr 03/31/19 04/01/19 04/01/19 23:49 00:00 00:20 Temperature Pulse Rate 74 70 Respiratory 18 16 18 Rate Blood Pressure 116/71 (mmHg) O2 Sat by Pulse 96 98 Oximetry 04/01/19 04/01/19 04/01/19 00:32 01:00 02:00 Temperature Pulse Rate 73 67 67 Respiratory 14 14 Rate Blood Pressure (mmHg) O2 Sat by Pulse 96 99 98 Oximetry 04/01/19 04/01/19 04/01/19 02:17 02:19 02:49 Temperature Pulse Rate 70 70 60 Respiratory 18 22 12 Rate Blood Pressure 122/67 114/66 118/84 (mmHg) O2 Sat by Pulse 97 96 98 Oximetry 04/01/19 04/01/19 04/01/19 02:53 03:00 03:24 Temperature 98.0 F Pulse Rate 71 56 Respiratory 20 21 18 Rate Blood Pressure 114/66 (mmHg) O2 Sat by Pulse 96 97 Oximetry 04/01/19 04/01/19 03:38 04:01 Temperature 98 F 98 F Pulse Rate 62 62 Respiratory 18 18 Rate Blood Pressure 131/81 131/81 (mmHg) O2 Sat by Pulse 99 99 Oximetry Oxygen Devices in Use Now: None Exam: Patient is lying on a bed with no acute distress. HEENT: Normocephalic and atraumatic Lungs: Clear with no added sounds. Heart: S1/S2 with no murmur or rub Abdomen: SOft, nondistended or nontender Extremity: erythemaous plaque with silvery scale noted on extensor surface of b/ l upper and lower limb Neuro: Alert and oriented Result Diagrams: 03/31/19 22:58 03/31/19 22:57 Additional Lab and Data: Lab Results 03/31/19 Range/Units 22:58 WBC 9.4 (3.5-10.8) 10^3/uL RBC 5.06 (4.18-5.48) 10^6 /uL Hgb 14.9 (14.0-18.0) g/dL Hct 42 (42-52) % MCV 83 (80-94) fL MCH 29 (27-31) pg MCHC 35 (31-36) g/dL RDW 14 (10-15) % Plt Count 239 (150-450) 10^3/uL MPV 8.9 (7.4-10.4) fL Neut % (Auto) 75.1 % Lymph % (Auto) 15.5 % [place] % (Auto) 7.6 % Eos % (Auto) 1.3 % Baso % (Auto) 0.5 % Absolute Neuts (auto) 7.0 (1.5-7.7) 10^3/ul Absolute Lymphs (auto) 1.5 (1.0-4.8) 10^3/ul Absolute Monos (auto) 0.7 (0-0.8) 10^3/ul Absolute Eos (auto) 0.1 (0-0.6) 10^3/ul Absolute Basos (auto) 0.1 (0-0.2) 10^3/ul Absolute Nucleated RBC 0.1 10^3/ul Nucleated RBC % 0.7 Assess/Plan/Problems-Billing Assessment: 28 y/o M with BMI 52.5 and h/o HTN, BORIS(on cpap) and psoriasis presented with left arm pain and diaphoresis for 1 day. Tropnonin elevated but downtrending. No ischemic changes on ECG, Echo and exercise stress test. - Patient Problems (1) Left arm pain Current Visit: Yes Status: Acute Code(s): M79.602 - PAIN IN LEFT ARM SNOMED Code(s): 952171300 Comment: started morning followed by nausea and diaphoresis. No chest pain. No complain at present Elevated troponin but downtrending. Normal ECG, echo and exercise stress test. BMI is 52.5. patient was counselled on diet changes and exercise. May be due to transient nerve compression but no any neck pain or numbness. (2) BORIS (obstructive sleep apnea) Current Visit: Yes Status: Acute Code(s): G47.33 - OBSTRUCTIVE SLEEP APNEA ( ADULT) (PEDIATRIC) SNOMED Code(s): 42131585 Comment: On CPAP (3) Psoriasis Current Visit: No Status: Acute Code(s): L40.9 - PSORIASIS, UNSPECIFIED SNOMED Code(s): 5930348 Comment: Continue current home regimen (4) DVT prophylaxis Current Visit: No Status: Acute Code(s): WXC5700 - SNOMED Code(s): 559448780 Comment: Ambulatory (5) Full code status Current Visit: No Status: Acute Code(s): Z78.9 - OTHER SPECIFIED HEALTH STATUS SNOMED Code(s): 678593977 Status and Disposition: Inpatient. Can be d/c Attending: Odalis Goldstein Attestation Documenting Resident: Jing Chahal Supervising Physician: Odalis Goldstein Attestation: This service has been performed in part by a resident under the direction of a teaching physician.I, Odalis Goldstein, performed the service, or was physically present during the critical, or barraza portions of the service, furnished by the resident. I participated in the management of the patient.
[2019-04-01] MEDS ORDERED: Perflutren Lipid Microsphere* 3 ML VIAL ONE (08:45)
--- NOTE | 2019-04-01 09:42 | HP ---
CC: Jovita Ellison NP * HISTORY AND PHYSICAL: DATE OF ADMISSION: 04/01/19 PRIMARY CARE PROVIDER: Jovita Ellison NP HEALTHCARE PROXY: The patient has not elected one. CODE STATUS: Full. CHIEF COMPLAINT: Left arm pain for several hours. HISTORY OF PRESENT ILLNESS: Mr. Wang is a 28-year-old man with a history of morbid obesity, prior ER presentations and admission for epigastric pain and psoriasis who is presenting with left arm pain since this morning. He reports being in his usual state of health until he woke up this morning and noted that his left arm felt "sore." It progressed throughout the day to feeling clammy and became associated with tingling of his left fingers. On interview in the emergency room after receiving aspirin and Ativan, the patient reports that his arm feels heavy like a " fish." He denies any associated chest pain. He has not exerted himself since this morning, so he is unsure if the pain is worse on exertion or walking. He reports that while he was driving to the emergency room, he began experiencing nausea, sweating, and shortness of breath , which she was not experiencing earlier today. He denies associated anxiety. He reports that since yesterday he has been experiencing a slightly decreased appetite as well as a few episodes of yellow diarrhea. He denies new foods or foods that may have been spoiled. No one else around him is sick. He denies fevers, chills, or lightheadedness. In the emergency room, he had EKG not concerning for ischemic changes; however, he did have an elevated troponin. He underwent a CT PE that was unremarkable for clot or other lung disease. Of note, the patient had an admission approximately 2 years ago for chest and abdominal pain that was thought to be either gastric or biliary in origin, it is unclear. At that time, he also had an elevated troponin, and echo performed was notable for EF of the lower limits of normal, 50% to 55% with mild to moderate concentric LVH and a mildly dilated left atrium. PAST MEDICAL HISTORY: 1. Psoriasis, recently started on etanercept injections. 2. Cholecystectomy. 3. Morbid obesity. 4. Umbilical hernia. HOME MEDICATIONS: Enbrel injections. ALLERGIES: No known drug allergies. FAMILY HISTORY: The patient reports cardiomegaly in his father and grandfather. Mother has endometriosis, uterine cancer status post hysterectomy. SOCIAL HISTORY: The patient smoked cigarettes from age 10 to 23. Over the last 6 years he has only vaped. He drinks approximately 2 days per week up to 5 beers per day. He uses marijuana recreationally but denies other drugs. He works at a [employer] in [facility]. He lives with 2 roommates. REVIEW OF SYSTEMS: Complete 10-point review of systems was performed and pertinent positives and negatives are listed in the HPI. PHYSICAL EXAMINATION GENERAL: He is a well-appearing man, in no acute distress. He is alert and interactive, answers questions appropriately. VITAL SIGNS: Afebrile, heart rate 50, blood pressure 144/66, respiratory rate 18, oxygen saturation 97% on room air. HEENT: OP clear. Moist mucous membranes. NECK: Unable to see JVP. HEART: Regular rate and rhythm. No murmurs, gallops, or rubs. LUNGS: Clear to auscultation bilaterally. ABDOMEN: Soft, nontender, nondistended. Obese. EXTREMITIES: Warm and well perfused without evidence of edema. NEURO: A and O x3. No focal deficits. SKIN: With psoriatic plaques to extensor surfaces of right arm, lower legs and left elbow. LABORATORY DATA/DIAGNOSTIC STUDIES: CBC, BMP unremarkable. ALT elevated to 66. Troponin elevated to 0.05. CTA chest without pulmonary emboli. Multiple pulmonary nodules showing greater than 2-year stability. Therefore, no followup indicated. EKG with normal sinus rhythm, rate 77. No evidence of heart block or ischemic changes. ASSESSMENT AND PLAN: Mr. Wang is a 28-year-old man with morbid obesity, psoriasis, and significant tobacco history who is presenting with left arm heaviness associated with diaphoresis and shortness of breath. He was found in the emergency room with an elevated troponin. 1. Left arm pain. This could possibly the neuropathic in nature; however, given association with diaphoresis and shortness of breath and with labs significant for elevated troponin, the patient will be admitted for repeat troponins and cardiac stress test. His DAVID score is at least 1 given the positive cardiac marker. Also given history of abnormal echo findings, we will repeat echo this admission. 2. DVT prophylaxis. The patient is ambulatory. 3. Code status. Full. TIME SPENT: Approximately 60 minutes were spent on admission of this patient, more than half of which was spent at bedside for interview and exam. [id number]/CPS #: [id number] AMANDA
--- NOTE | 2019-04-01 11:11 | ECHO ---
*[facility]* [place] [address] Fax #: [phone] Transthoracic Echocardiogram Patient: Quentin Wang : 1990 Study Date: 04/01/2019 Age: 28 Gender: M HR: 55 bpm Height: 71 in /180.3 cm BSA: 3.08 m^2 Weight: 389.2 lb /176.9 kg BMI: 54.4 kg/m^2 *Wire Bound Box Machine Operator: * Ayesha Hairston [facility] *Referring Physician: * Paula Davalos *Reading Physician: * Jacinda Stewart MD Indications: Chest Pain, unspecified. History: Functional status: Not following treatment plan for sleep apnea. Risk factors: Hypertension. Morbidly obese. Conclusions Summary: - Left ventricle: The cavity size is normal. There is mild concentric hypertrophy. Systolic function is normal. The estimated ejection fraction is 55-60%. - Left atrium: The atrium is mildly dilated. - Mitral valve: There is trace regurgitation. - C/t 12/02/2016, no overt sig changes. Study data: Transthoracic echocardiogram. Procedure: Transthoracic echocardiography was performed. Image quality was suboptimal. Intravenous Definity , 4 mls were administered. Complete 2D, spectral Doppler, and color flow Doppler. Location: Bedside. Patient status: Inpatient. Patient room number: 452. Rhythm: Bradycardia. Findings Left ventricle: The cavity size is normal. There is mild concentric hypertrophy. Systolic function is normal. The estimated ejection fraction is 55-60%. Wall motion is normal; there are no regional wall motion abnormalities. Left ventricular diastolic function parameters are normal. Right ventricle: The cavity size is mildly dilated. Systolic function is normal. Left atrium: The atrium is mildly dilated. Right atrium: The atrium is mildly dilated. Mitral valve: The leaflets are normal thickness. There is no evidence of stenosis. There is trace regurgitation. Aortic valve: The valve is trileaflet. The leaflets are normal thickness. There is no evidence of stenosis. There is no significant regurgitation. Tricuspid valve: The leaflets are normal thickness. There is no evidence of stenosis. There is physiologic regurgitation. Pulmonic valve: The leaflets are normal thickness. There is no evidence of stenosis. There is trace regurgitation. Aorta: Ascending aorta: The ascending aorta is appears normal. The aortic root appears normal. The aortic arch appears normal. Pericardium: A prominent pericardial fat pad is present. There is no significant pericardial effusion. Pulmonary arteries: The main pulmonary artery is normal-sized. Systolic pressure can not be accurately estimated. Systemic veins: Inferior vena cava: The vessel is at the upper limits of normal in size. There is (>= 50%) respiratory change in the IVC dimension. Measurements Left ventricle Value Ref Aortic valve Value Ref EMMA, LAX 4.7 cm 4.2 - 5.8 Paramjit diam, ED 2.0 cm ---- ESD, LAX 3.4 cm 2.5 - 4.0 Paramjit diam/bsa, ED 0.7 cm/m^2 ---- FS, LAX 27 % - 43 Peak v, S 1.2 m/sec ---- PW, ED, LAX (H) 1.1 cm 0.6 - 1.0 VTI, S 26.6 cm ---- FS 28 % 25 - 43 Mean grad, S 3.0 mm Hg ---- PW, ED (H) 1.1 cm 0.6 - 1.0 Peak grad, S 6.0 mm Hg ---- E', lat paramjit, TDI 12.0 cm/sec >=10.0 LVOT/AV, VTI ratio 0.75 - --- E/e', lat paramjit, 10 TDI Mitral valve Value Ref E', med paramjit, TDI 9.2 cm/sec >=7.0 Peak E 1.17 m/sec - --- E/e', med paramjit, 13 Peak A 0.56 m/sec ---- TDI Decel time 190 ms ---- E', avg, TDI 10.6 cm/sec Peak grad, D 5.5 mm Hg ---- E/e', avg, TDI 11 <=14 Peak E/A ratio 2.1 - --- LVOT Value Ref Pulmonic valve Value Ref Peak ashley, S 1 m/sec Peak v, S 1.04 m/sec ---- VTI, S 20.0 cm Peak grad, S 4.0 mm Hg ---- Mean grad, S 2 mm Hg Aortic root Value Ref Ventricular septum Value Ref Root diam 2.9 cm <4.9 IVS, ED (H) 1.1 cm 0.6 - 1.0 Ascending aorta Value Ref Right ventricle Value Ref AAo AP diam, S 2.9 cm ---- EMMA, LAX 4.2 cm EMMA minor ax, A4C (H) 4.5 cm 1.9 - 3.5 Aortic arch Value Ref mid Arch diam 2.1 cm ---- Left atrium Value Ref Decending aorta Value Ref AP dim, ES 3.80 cm 3.00 - [place] peak ashley 0.99 m/sec ---- 4.00 ML dim, A4C 5.2 cm Inferior vena cava Value Ref SI dim, A4C 5.9 cm Diam 2.1 cm ---- Vol/bsa, ES, 1-p 35 ml/m^2 12 - 37 A4C Vol/bsa, ES, A/L (H) 35 ml/m^2 16 - 34 Right atrium Value Ref SI dim, ES (H) 5.4 cm 3.4 - 5.3 ML dim, ES, A4C (H) 5.1 cm 2.6 - 4.4 SI dim, ES, A4C (H) 5.4 cm 3.4 - 5.3 SI dim/bsa, ES, 1.8 cm/m^2 1.8 - 3.0 A4C Estimated RAP 3 mm Hg Legend: (L) and (H) bishnu values outside specified reference range. Prepared and electronically signed by Jacinda Stewart MD 04/01/2019 11:09
[2019-04-01 16:00] VITALS: BP 127/75
--- NOTE | 2019-04-02 01:07 | DS ---
CC: Jovita Ellison NP * DISCHARGE SUMMARY: DATE OF ADMISSION: 04/01/19 DATE OF DISCHARGE: 04/01/19 DISPOSITION AT TIME OF DISCHARGE: Stable to discharge to home. PRIMARY CARE PROVIDER: Jovita Ellison NP PRIMARY DIAGNOSIS: Left arm pain with elevated troponin. SECONDARY DIAGNOSES: 1. Obesity. 2. Obstructive sleep apnea, on CPAP. 3. Psoriasis, on Enbrel. MEDICATIONS AT THE TIME OF DISCHARGE: Include Enbrel. Otherwise, the patient takes his medications. There is no change to medications on this hospitalization. HISTORY OF PRESENT ILLNESS AND HOSPITAL COURSE: A 28-year-old male with past medical history as per above, presented to the emergency room on the evening of 03/31/19 with complaints of left arm feeling stiff and sore in the upper region associated with some clamminess, diaphoresis, also some sweating and shortness of breath that he experienced not during exertion. He denies any associated anxiety. In the emergency room, EKG showed normal sinus rhythm. However, he did have an elevated troponin to 0.03. He did undergo a CTPE that was unremarkable for clot and other lung disease. Of note, the patient had an admission 2 years ago for chest and abdominal pain that was thought to be either gastric or biliary in origin. At that time, he did have elevated troponin. An echo was performed, was notable an EF on the lower limits of normal at 50% to 55% with mild to moderate concentric LVH and mildly dilated left atrium, though he did not have a stress test done at that time. Because of the patient's elevated troponin and atypical chest pain in the setting of risk factor of obesity, he was admitted for nonnuclear stress test. His hospital course by problem is as follows: 1. Atypical chest pain with left arm pain. The patient underwent exercise stress test, performed well with no evidence of ischemia. An echocardiogram was done that showed improved ejection fraction to 55% to 60% again with left atrium that is mildly dilated, but no regional wall motion abnormalities. 2. Elevated troponin. Troponin plateaued at 0.04 to 0.03. He had no further chest pain or left arm pain and in fact it resolved on its own. Overall, the patient is ambulating, tolerating diet, had excellent exercise stress test and normal echocardiogram. The source of his elevated troponin remains unclear, perhaps this is all secondary to demand ischemia in the setting of large body mass or dilated left atrium causing some underlying stretch and release of enzyme during strenuous activities. His primary care provider can determine whether it is appropriate to have this patient follow with Cardiology in the future. He does have obstructive sleep apnea, although he reports he is compliant in CPAP. There is no evidence of acute coronary syndrome or other ischemic lesion that may be the causing this. Thus, it is stable for him to be discharged, which he agrees with. He can follow up with primary care whom he sees regularly and follows secondary to psoriasis treatment. LABS AND STUDIES DONE DURING THIS HOSPITALIZATION: The chest thorax CTA, which is negative for PE, a transthoracic echocardiogram done on 04/01/19 shows normal ejection fraction and dilated left atrium, but no regional wall motion abnormalities, some left ventricular hypertrophy, and an exercise stress test done on 04/01/19 that shows no reversible ischemic defects. Labs show white blood cell count of 9.4, hemoglobin 14.9, hematocrit 42, platelets 239. D-dimer is 248. Sodium 138, potassium 3.5, chloride 105, carbon dioxide 23, anion gap 10, creatinine 0.83, and glucose 135. Troponin is 0.05 and then 0.04. EKG showed normal sinus rhythm with no acute signs of ischemia. ITEMS TO FOLLOW UP ON STATUS POST DISCHARGE: 1. The patient's atypical chest pain. He was stratified to a low risk with exercise stress test with some significant confidence that this is likely not ACS, although he continues to have mildly elevated troponin during stress, which is possibly concerning for demand ischemia. Discretion of primary care provider can determine if the patient is reasonable to follow with primary waiter/waitress economy class if another event occurs. 2. Morbid obesity. The patient reports significant success with diet and exercise. We encouraged him in this endeavor and he is eager to continue to work on these lifestyle modifications that have lead to success in the past. TIME SPENT: Thirty minutes was spent on planning this discharge and over half of that was spent directly at the bedside with the patient providing direct patient care. If there are any questions about the care of this patient during this hospitalization, please do not hesitate to reach or contact us directly, my cellphone is [phone]. [id number]/[facility] #: [id number] AMANDA
== END 2019-04-01 16:42 | disposition home or self-care (01) ==
LOC: ED 22:37 → MEDTELE 04-01 02:38
PROVIDERS: ADMIT Internal Medicine; ATTEND Internal Medicine
DX: M79.602 Pain in left arm (principal); R77.8 Other specified abnormalities of plasma proteins; E66.9 Obesity, unspecified; G47.33 Obstructive sleep apnea (adult) (pediatric); L40.9 Psoriasis, unspecified; E66.01 Morbid (severe) obesity due to excess calories; K42.9 Umbilical hernia without obstruction or gangrene
CPT/HCPCS: 36415; 71046; 71275; 80053; 84484; 85025; 85379; 93017; 93306; 96374; 99284; A9270-GY; C8929; G0378; J2060; Q9967